=== PATIENT | female | born 1950 | race Caucasian/White ===

== ENCOUNTER 2025-07-12 18:15 | Emergency (ER) | payer MEDICARE, MEDICAID, SELFPAY ==
[2025-07-12 18:31] VITALS: BP 111/75; PULSE 106; RESP 14; TEMP 36.9; O2SAT 94
--- NOTE | 2025-07-12 18:43 | XR_ITS ---
Examination: CT abdomen and pelvis without contrast. Coronal 3-D reconstructions. Sagittal 2-D reconstructions. Date and time of exam: July 12, 2025, 1903 hours, comparison September 03, 2019 INDICATIONS: Bilateral flank pain radiating to the abdomen today CTDI: vol (mGy): 8.53 DLP: (mGycm): 464 Technique: Axial images of the abdomen have been obtained, 3 mm slice thickness Intravenous contrast material has not been administered. Low dose protocols were performed. One or more of the following dose reduction techniques were used; automated exposure control, adjustment of the mA and/or KV according to patient size, use of iterative reconstruction technique. Findings: Minimal right pleural disease, atelectasis versus mild pneumonia right base Trace pericardial effusion No focal liver lesions No definite gallstones Spleen is not enlarged No pancreatic mass Normal adrenal glands Air in the right renal collecting system Right perinephric stranding 24 mm hyperdense anterior right renal mass image 92 Mild right hydronephrosis, suspicious for 2 mm distal right ureterovesical junction calculus image 188 Significant scarring left kidney Air in the urinary bladder, no bladder calculi No bowel obstruction 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, T8 IMPRESSION: Recommend renal sonography to assess 24 mm hyperdense anterior right renal mass Right perinephric stranding, mild right hydronephrosis, suspicious for 2 mm distal right ureteral vesicle junction calculus Air in the right renal collecting system and in the urinary bladder, consider urinary tract infection
--- NOTE | 2025-07-12 18:43 | PD.EDRME ---
Rapid Medical Screening Exam RME Arrival date/time: 07/12/25 18:15 This is a case of 74-year-old female with history of diabetes came in in the emergency room due to bilateral flank pain radiating to the abdominal pain associated with general weakness and shortness of breath patient blood sugar was 589 at home worsening of the symptoms this daughter decided to bring patient here in the emergency room Chief Complaint: Recheck/Abnormal Lab/Rx Time Seen by Provider: 07/12/25 18:34 Vital signs: Vital Signs Temperature 98.5 F 07/12/25 18:31 Pulse Rate 106 H 07/12/25 18:31 Respiratory Rate 14 07/12/25 18:31 Blood Pressure 111/75 07/12/25 18:31 Pulse Oximetry (%) 94 L 07/12/25 18:31 Oxygen Delivery Method Room Air 07/12/25 18:31 Exam: Patient noted to have bilateral flank tenderness patient is mild distress seems dehydrated Clinical Impression: Hyperglycemia
[2025-07-12 18:59] LABS: Base Excess, Venous -10 (-3-3); O2 Saturation, Venous 92 % (96-97); PCO2, Venous 22 mmHg (36-56); PO2, Venous 58 mmHg (15-58); pH, Venous 7.39 (7.33-7.66)
[2025-07-12 19:01] LABS: Basophils # (Auto) 0.1 Thou/mm3 (0.0-0.2); Basophils % (Auto) 0 % (0-2.5); Eosinophils # (Auto) 0.0 Thou/mm3 (0.0-0.5); Eosinophils % (Auto) 0 % (0-10); Hematocrit 32.8 % (36.0-46.0); Hemoglobin 11.6 g/dL (12.0-16.0); Immature Granulocytes Auto 0.23 Thou/mm3 (0.00-0.00); Lymphocytes # (Auto) 0.4 Thou/mm3 (1.0-4.8); Lymphocytes % (Auto) 2 % (10-50); Mean Corpuscular HGB Conc 35.4 g/dl (31.0-37.0); Mean Corpuscular Hemoglobin 27.8 pg (25.0-35.0); Mean Corpuscular Volume 79 fL (80-100); Monocytes # (Auto) 0.8 Thou/mm3 (0.0-0.8); Monocytes % (Auto) 3 % (0-12); Neutrophils # (Auto) 23.8 Thou/mm3 (1.8-7.7); Neutrophils % (Auto) 94 % (37-80); Nucleated Red Blood Cell # 0.00 Thou/mm3 (0.00-0.00); Nucleated Red Blood Cell % 0 /100 WBC (0); Platelet Count 142 Thou/mm3 (140-440); RDW Standard Deviation 37.2 fL (36.4-46.3); Red Blood Count 4.17 Miln/mm3 (4.00-5.20); White Blood Count 25.3 Thou/mm3 (3.6-11.0)
[2025-07-12] MEDS: SODIUM CHLORIDE 0.9% 1000 ML 1,000 ML 999 ML IV ×2 (19:08→20:06)
[2025-07-12 19:09] LABS: Beta Hydroxybutyrate 4.5 mmol/L (<0.6)
--- NOTE | 2025-07-12 19:13 | EKG_ITS ---
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
--- NOTE | 2025-07-12 19:14 | XR_ITS ---
EXAMINATION: AP chest single view TECHNIQUE: AP portable upright chest single view Date and time: July 12, 2025, 2008 hours INDICATIONS: Sepsis alert shortness of breath today FINDINGS: Mild prominence left ventricle Prominent vascular congestion No lobar pneumonia The osseous structures are demineralized IMPRESSION: Suspicious for early heart failure
[2025-07-12 19:22] LABS: Lactate (Lactic Acid) 2.4 mMol/L (0.4-2.0)
[2025-07-12 19:35] LABS: INR 1.0 (0.9-1.3); Partial Thromboplastin Time 29.9 Seconds (22.0-36.0); Prothrombin Time 10.9 Seconds (9.0-12.2)
[2025-07-12 19:40] LABS: B-Type Natriuretic Peptide 73 pg/mL (0-100)
[2025-07-12] MEDS: INSULIN HUM REGULAR 1 UNIT/0.01 ML (PER UNIT) 10 UNIT IV (19:49)
[2025-07-12] MEDS: cefTRIAXone/D5w 1gm IV premix 1 GM/50 ML BAG IV (20:01)
[2025-07-12 20:03] LABS: Base Excess -10 (-3-3); HCO3 14 mEq/L (20-26); Inspired Oxygen, FIO2 21 %; O2 Saturation 96 % (91-98); PCO2 27 mmHg (32.0-48.0); PO2 78 mmHg (83-108); pH, Arterial 7.34 (7.35-7.45)
[2025-07-12 20:04] LABS: Basophils # (Auto) 0.0 Thou/mm3 (0.0-0.2); Basophils % (Auto) 0 % (0-2.5); Eosinophils # (Auto) 0.0 Thou/mm3 (0.0-0.5); Eosinophils % (Auto) 0 % (0-10); Hematocrit 31.8 % (36.0-46.0); Hemoglobin 11.4 g/dL (12.0-16.0); Immature Granulocytes Auto 0.21 Thou/mm3 (0.00-0.00); Lymphocytes # (Auto) 0.5 Thou/mm3 (1.0-4.8); Lymphocytes % (Auto) 2 % (10-50); Mean Corpuscular HGB Conc 35.8 g/dl (31.0-37.0); Mean Corpuscular Hemoglobin 29.0 pg (25.0-35.0); Mean Corpuscular Volume 81 fL (80-100); Monocytes # (Auto) 1.1 Thou/mm3 (0.0-0.8); Monocytes % (Auto) 4 % (0-12); Neutrophils # (Auto) 27.5 Thou/mm3 (1.8-7.7); Neutrophils % (Auto) 94 % (37-80); Nucleated Red Blood Cell # 0.00 Thou/mm3 (0.00-0.00); Nucleated Red Blood Cell % 0 /100 WBC (0); Platelet Count 143 Thou/mm3 (140-440); RDW Standard Deviation 38.2 fL (36.4-46.3); Red Blood Count 3.93 Miln/mm3 (4.00-5.20); White Blood Count 29.3 Thou/mm3 (3.6-11.0)
[2025-07-12 20:04] LABS: Allen Test Performed/OK; Puncture Site Right Radial
[2025-07-12 20:17] VITALS: BP 139/86; PULSE 96; RESP 29; TEMP 36.7; O2SAT 99; BMI 25.0
--- NOTE | 2025-07-12 20:32 | PD.EDAMS ---
Altered Mental Status RME/HPI General Chief Complaint: Recheck/Abnormal Lab/Rx Stated Complaint: HIGH BS, RIGHT LOWER BACK PAIN, DYSPNEA, CONFUSION Time Seen by Provider: 07/12/25 18:34 Arrival date/time: 07/12/25 18:15 RME / HPI RME / HPI narrative: 07/12/25 18:15 This is a case of 74-year-old female with history of diabetes came in in the emergency room due to bilateral flank pain radiating to the abdominal pain associated with general weakness and shortness of breath patient blood sugar was 589 at home worsening of the symptoms this daughter decided to bring patient here in the emergency room DR. CASTRO MAIN ED EVALUATION: Patient presents by daughter due to generalized fatigue, mild confusion decreasing intensity over the last several weeks. Reportedly patient is forgetful regarding PO medication for diabetes and doctors appointments. Patient is usually polydipsic, but not polyuric. No fever, chills, vomiting, diarrhea, or abdominal pain. PMH: Type II DM, Hypercholesterolemia PSH: Non-contributory Allergies: None Social: Non-smoker, Non-drinker, No illicit drug abuse Exam: Patient noted to have bilateral flank tenderness patient is mild distress seems dehydrated Impression: Hyperglycemia Related Data Home Medications ?Medication ?Instructions ?Recorded ?Confirmed Acetaminophen With Codeine #3 * 1 tab PO [id number] PRN PAIN #0 tabs 06/06/17 08/08/19 (TYLENOL WITH CODEINE #3 *) Dicyclomine Hcl * (BENTYL *) 20 mg PO QID #0 tabs 06/06/17 08/08/19 Fluticasone Propionate NASAL * 1 spry Nasally BID #0 spry 06/06/17 08/08/19 (FLONASE *) Losartan Potassium * (COZAAR *) 25 mg PO QDAY #0 tabs 06/06/17 08/08/19 Tiotropium Bally * (SPIRIVA *) 1 cap inhalation QDAY #0 puffs 06/06/17 08/08/19 albuterol sulfate 90 mcg/actuation 2 puff inhalation Q6HR PRN 09/19/17 11/21/19 aerosol inhaler (Proventil HFA) SHORTNESS OF BREATH #0 inhalations conjugated estrogens 0.3 mg tablet 0.3 mg PO QDAY #0 tabs 06/06/17 08/08/19 (Premarin) doxazosin 1 mg tablet (Cardura) 1 mg PO QDAY ##0 06/06/17 08/08/19 fluoxetine 20 mg capsule (Prozac) 20 mg PO QAM #0 caps 06/06/17 08/08/19 gabapentin 300 mg capsule 300 mg PO BID #0 caps 06/06/17 08/08/19 glipizide 10 mg tablet 10 mg PO ACBR #0 tabs 06/06/17 08/08/19 loratadine 10 mg tablet (Claritin) 10 mg PO QDAY #0 tabs 06/06/17 08/08/19 montelukast 10 mg tablet 10 mg PO HS #0 tabs 06/06/17 08/08/19 (Singulair) omeprazole 20 mg capsule,delayed 20 mg PO QDAY ##0 06/06/17 08/08/19 release pantoprazole 40 mg tablet,delayed 40 mg PO QDAY ##0 06/06/17 08/08/19 release (Protonix) pioglitazone 45 mg tablet (Actos) 45 mg PO QDAY #0 tabs 06/06/17 08/08/19 ranitidine HCl 150 mg tablet 150 mg PO BID #0 tabs 06/06/17 08/08/19 (Zantac) simvastatin 20 mg tablet (Zocor) 20 mg PO HS #0 tabs 06/06/17 08/08/19 sitagliptin phosphate 50 mg tablet 50 mg PO QDAY #0 tabs 06/06/17 08/08/19 (Januvia) carvedilol 3.125 mg tablet 3.125 mg PO BID 08/08/19 08/08/19 Previous Rx's ?Medication ?Instructions ?Recorded Hydrocodone/Ibuprofen (Vicoprofen 1 tab PO [id number] ##14 06/03/12 200-7.5 Tablet) cephalexin 500 mg capsule 500 mg PO BID #20 caps 09/01/19 Allergies Allergy/AdvReac Type Severity Reaction Status Date / Time No Known Allergies Allergy Verified 09/01/19 06:12 Review of Systems Review of Systems Systems Reviewed: All systems reviewed, normal except as documented Past Medical History Past Medical History CARDIAC: Positive Hypercholesterolemia ENDOCRINE: Positive Diabetes Mellitus Type 2 ED Exam Narrative Physical exam: GEN. APPEARANCE: The patient is alert awake, mildly confused although able to follow simple commands, 14/15, notably tachycardic., lying down comfortably, does not look ill/toxic. Patient has good eye contact. Patient is cooperative. VITALS: All vitals were reviewed and the pulse ox is 96%, which is normal according to my interpretation HEENT: Normocephalic, atraumatic and nontender. Pupils are equal and reactive. Mucous membranes dry. NECK: Supple, nontender, no meningismus, no JVD. There is no thyromegaly and no lymphadenopathy. CHEST: Nontender on palpation no deformity and no crepitus. CARDIOVASCULAR: Tachycardic, no murmur or gallop rub or extra beats. LUNGS: Clear to auscultation bilaterally with symmetrical chest rise. No laboring tachypnea or wheezing. No intercostal subcostal retraction. No rales and no rhonchi. ABDOMEN: Soft, flat, nontender to palpation, no guarding or rebound tenderness. There are no abnormal masses palpated. No pulsatile masses or bruits. Active and normal bowel sounds. EXTREMITIES: Normal inspection and palpation. No edema. No cyanosis. Patient is able to move all 4 extremities well SKIN: Warm and dry, no rashes noted. MUSCULOSKELETAL: No lumbar or midline bony tenderness. There is no CVA tenderness. No paraspinal muscle spasm or tenderness. NEURO: Cranial nerves II through XII grossly intact. There are no focal neurologic deficits noted. GCS is 15 PSYCHIATRIC: Patient is in normal mood and affect, cooperative. LYMPHATICS: No major lymphadenopathy noted. Course Course Course Narrative: Sepsis alert initiated. Orders made at this time are congruent with ED Adult Sepsis Order List. Re-evaluation is to be completed. Quality Measures Current suspected stage: sepsis Possible source: unknown Blood cultures ordered: yes Antibiotic ordered: Yes Pertinent labs: 07/12/25 07/12/25 18:54 22:54 Lactic Acid 2.4 H mMol/L 2.3 H mMol/L (0.4-2.0) (0.4-2.0) Procalcitonin 66.12 H ng/ml (0.0-0.49) sepsis Orders Category Date Time Status Bedside Blood Glucose STAT Care 07/12/25 21:58 Active Tractor Engine Mechanic STAT Care 07/12/25 19:13 Active Tractor Engine Mechanic STAT Care 07/12/25 21:58 Active Continuous Pulse Oximetry STAT Care 07/12/25 19:13 Completed DKA Protocol QSHIFT Care 07/12/25 21:58 Active EKG (ED ONLY) *Do not use* NOW Care 07/12/25 19:13 Completed Woo to [place]ill Routine Care 07/12/25 23:31 Ordered In and Out Catheter X1 Care 07/12/25 21:58 Completed In and Out Catheter X1PRN Care 07/12/25 19:13 Completed Insert IV NOW Care 07/12/25 19:13 Active Insert IV STAT Care 07/12/25 21:58 Active Intake and Output Routine Care 07/12/25 21:58 Ordered NPO STAT Care 07/12/25 19:13 Active Notify provider NEEDED Care 07/12/25 21:58 Active Strict Intake and Output Routine Care 07/12/25 19:13 Ordered Referral Registered Dietitian Routine Cons 07/12/25 21:[address] abdomen pelvis wo con Stat Exams 07/12/25 18:43 Completed EKG (ED Only) Stat Exams 07/12/25 19:13 Draft XR chest 1V portable Stat Exams 07/12/25 19:14 Completed Arterial Blood Gas Stat Lab 07/12/25 19:54 Completed B-Type Natriuretic Peptide Stat Lab 07/12/25 18:54 Completed Beta Hydroxybutyrate Stat Lab 07/12/25 18:54 Completed Beta Hydroxybutyrate Stat Lab 07/12/25 23:16 Completed Blood Culture (Lab) Stat Lab 07/12/25 19:30 Received Blood Culture (Lab) Stat Lab 07/12/25 22:54 Received CBC Stat Lab 07/12/25 18:54 Completed CBC Stat Lab 07/12/25 19:30 Completed Comprehensive Metabolic Panel Stat Lab 07/12/25 18:54 Completed Comprehensive Metabolic Panel Stat Lab 07/12/25 23:16 Completed Glycohemoglobin w (eAG) Stat Lab 07/12/25 19:30 Completed Lactic Acid [Lactate (Lactic Acid)] Stat Lab 07/12/25 18:54 Completed Lactic Acid, 3 HR Stat Lab 07/12/25 22:54 Completed Lipase Stat Lab 07/12/25 18:54 Completed Magnesium Stat Lab 07/12/25 18:54 Completed Magnesium Stat Lab 07/12/25 23:16 Completed Partial Thromboplastin Time Stat Lab 07/12/25 18:54 Completed Phosphorous Stat Lab 07/12/25 18:54 Completed Phosphorous Stat Lab 07/12/25 23:16 Completed Procalcitonin Stat Lab 07/12/25 18:54 Completed Prothrombin Time with INR Stat Lab 07/12/25 18:54 Completed Troponin I Stat Lab 07/12/25 18:54 Completed Urinalysis, C/S if Indicated Stat Lab 07/12/25 23:15 Completed Urine Culture Stat Lab 07/12/25 23:15 Received Venous Blood Gas Stat Lab 07/12/25 18:54 Completed Clindamycin 900Mg Ivpb [Cleocin/D5w Ivpb] 900 mg Med 07/12/25 22:16 Discontinued Pre-Mixed [Pre-mixed Bag] 1 bag IV X1 Dextrose 5%-Lactated Ringers [D5-Lr] 1,000 ml Med 07/12/25 21:58 Active Pot Chl Additive [KCl Additive] 40 meq IV 250 mls/hr Dextrose 5%-Lactated Ringers [D5-Lr] 1,000 ml Med 07/12/25 21:58 Active IV 250 mls/hr Dextrose 50% Syr [D50w Syringe Abboject] Med 07/12/25 21:58 Active 25 ml IV [id number] PRN Insulin Regular Med 07/12/25 18:39 Discontinued 10 unit IV X1 ONE KCL 20 mEq/L in D5-LR Med 07/12/25 21:58 Active 20 meq in 1,000 ml IV 250 mls/hr Magnesium Sulfate 2 GM Ivpb [Magnesium Sulfate Ivpb] Med 07/12/25 21:58 Active 2 gm in 50 ml IV 25 mls/hr Ondansetron Inj [Zofran Inj] Med 07/12/25 19:12 Active 4 mg IVP Q6HR PRN POT PHOS 15 mMol in NS 250 ML [Pot Phos 15 mMol in NS Med 07/12/25 21:58 Active 250 ml] 15 mmol in 250 ml IV PRN POTASSIUM CHL 10 mEq IVPB [Kcl Ivpb] Med 07/12/25 21:58 Active 10 meq in 100 ml IV 100 mls/hr POTASSIUM CHL 10 mEq IVPB [Kcl Ivpb] Med 07/12/25 21:58 Active 10 meq in 100 ml IV PRN Pre-Mixed [Pre-mixed Bag] 1 bag Med 07/12/25 21:58 Active Insulin Reg 100 Units/100 ml [Myxredlin] 100 unit IV 0.1 unit/kg/hr Ringers Lactated 1000 ml [Lactated Ringers] 1,000 ml Med 07/12/25 21:58 Active Pot Chl Additive [KCl Additive] 20 meq IV 250 mls/hr Ringers Lactated 1000 ml [Lactated Ringers] 1,000 ml Med 07/12/25 21:58 Active Pot Chl Additive [KCl Additive] 40 meq IV 250 mls/hr Ringers Lactated 1000 ml [Lactated Ringers] 1,000 ml Med 07/12/25 21:58 Active IV 250 mls/hr Sodium Bicarb 8.4% SYR Med 07/12/25 21:58 Active 50 ml IV Q4HR PRN Sodium Chloride 0.9% 1000 ml [Ns] 1,000 ml Med 07/12/25 18:40 Discontinued IV 999 mls/hr Sodium Chloride 0.9% 1000 ml [Ns] 1,000 ml Med 07/12/25 19:12 Discontinued IV 999 mls/hr Sodium Chloride 0.9% 250 ml [Ns] 250 ml Med 07/12/25 21:58 Active Sod Phos Additive [NaPhos Additive] 15 mmol IV 62.5 mls/hr cefTRIAXone/D5w 1gm IV premix [Rocephin/D5w 1gm IV Med 07/12/25 19:12 Discontinued premix] 1 gm in 50 ml IV X1 Oxygen Delivery NOW RT 07/12/25 19:13 Active Vital Signs Vital signs: Vital Signs Temperature 98.5 F 07/12/25 18:31 Pulse Rate 106 H 07/12/25 18:31 Respiratory Rate 14 07/12/25 18:31 Blood Pressure 111/75 07/12/25 18:31 Pulse Oximetry (%) 94 L 07/12/25 18:31 Oxygen Delivery Method Room Air 07/12/25 18:31 Altered Mental Status MDM Narrative MDM Narrative:: Scribe Attestation: IAnabelle, am scribing for and in the presence of Dr. Castro. Provider Notation: Although this document has been carefully reviewed, there may still be some phonetic and other typographical errors. These errors are purely grammatical due to imperfections in the software program and should not be construed in any way to compromise the substance of the patient's medical care during this visit. Patient presents by daughter due to generalized fatigue, mild confusion decreasing intensity over the last several weeks. Reportedly patient is forgetful regarding PO medication for diabetes and doctors appointments. Please see PE findings. Laboratory markers demonstrate marked WBC of 25K, mildly anemic with hemoglobin of 11.4, no thrombocytopenia, noted left shift without associated bandemia. Serum chemistries demonstrate markedly low Sodium of 110, Chloride of 79, CO2 of 13.7, mildly elevated BUN of 52, and Creatinine 3.8. Blood sugar markedly elevated at 562, and Lactic Acid of 2.4. Beta-Hydroxybutyrate/Acetoacetate elevated at 4.5 and Procalcitonin of 66.12. Patient met both sepsis and DKA criteria. Patient cultured and administered dual-antibiotics, with no obvious source of infection, although UA still currently pending. CXR demonstrates mild fluid overload. Patient also began on insulin infusion after initial bolis. Hypertonic saline will be considered. Hospitalist/Upholstery Technician contacted and agreed to personally evaluate patient at bedside for consideration of ICU admission. Final diagnoses include Acute DKA, Acute Sepsis, Acute Renal Insufficiency, and Acute Hyponatremia. Patient data External records reviewed:: [facility] previous records (No recent ED records available for review) Clinical information provided by:: patient and family (Daughter) Social determinants that could affect healthcare access:: none Patient has the following chronic illnesses:: Type II DM How is presenting disease/condition affected by chronic disease/condition?: exacerbated by Evaluation data The following diagnostics were reviewed and interpreted by me:: lab results, radiology exam(s) and EKG tracing(s) (EKG demonstrates Sinus tachycardia with rate of 100 bpm, no acute ST segment changes, no ventricular ectopy, axis leftward, previous interseptal wall GA, and LAFP, per my interpretation. ) Lab and/or radiology exams considered but not ordered:: None Interpretation Summary: RADIOLOGY Chest X-Ray: FINDINGS: Mild prominence left ventricle Prominent vascular congestion No lobar pneumonia The osseous structures are demineralized IMPRESSION: Suspicious for early heart failure Abdomen/Pelvis CT: Findings: Minimal right pleural disease, atelectasis versus mild pneumonia right base Trace pericardial effusion No focal liver lesions No definite gallstones Spleen is not enlarged No pancreatic mass Normal adrenal glands Air in the right renal collecting system Right perinephric stranding 24 mm hyperdense anterior right renal mass image 92 Mild right hydronephrosis, suspicious for 2 mm distal right ureterovesical junction calculus image 188 Significant scarring left kidney Air in the urinary bladder, no bladder calculi No bowel obstruction 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, T8 IMPRESSION: Recommend renal sonography to assess 24 mm hyperdense anterior right renal mass Right perinephric stranding, mild right hydronephrosis, suspicious for 2 mm distal right ureteral vesicle junction calculus Air in the right renal collecting system and in the urinary bladder, consider urinary tract infection Medications / Prescriptions Medications or Prescriptions considered but not ordered:: None Medication administrations:: Medication Administration History Dextrose (Dextrose 50%-Water Inj 50 Ml Syringe) 25 ml IV [id number] PRN PRN Reason: Blood Sugar - Low Potassium Chloride (Kcl Ivpb) 10 meq in 100 mls @ 100 mls/hr IV .Q1H PRN PRN Reason: IF POTASSIUM LESS THAN 3.3 Stop: 08/11/25 21:57 Magnesium Sulfate (Magnesium Sulfate Ivpb) 2 gm in 50 mls @ 25 mls/hr IV .Q2H PRN PRN Reason: PER DKA PROTOCOL Stop: 08/11/25 21:57 Insulin Human Regular 100 unit (/ IV Miscellaneous Supplies) 100 mls @ 6.804 mls/hr IV .[id number] PRN; Protocol PRN Reason: PER PROTOCOL Stop: 08/11/25 21:57 Last Admin: 07/12/25 22:32 Dose: 0.1 unit/kg/hr, 6.804 mls/hr Documented By: TIERA Co-signed By: MORIS Dextrose/Lactated Ringer's (D5-Lr) 1,000 mls @ 250 mls/hr IV .Q4H PRN PRN Reason: PER PROTOCOL Stop: 08/11/25 21:57 Lactated Ringer's (Lactated Ringers) 1,000 mls @ 250 mls/hr IV .Q4H PRN PRN Reason: PER PROTOCOL Stop: 07/13/25 21:57 Last Admin: 07/12/25 22:32 Dose: 250 mls/hr Documented By: TIERA Potassium Chloride 20 meq/ (Lactated Ringer's) 1,010 mls @ 250 mls/hr IV .Q4H3M PRN PRN Reason: K LEVEL 3.3 TO 5.3mM/L Stop: 08/11/25 21:57 Potassium Chloride 40 meq/ (Lactated Ringer's) 1,020 mls @ 250 mls/hr IV .Q4H5M PRN PRN Reason: K LEVEL < 3.3 mM/L Stop: 08/11/25 21:57 Potassium Chloride 40 meq/ (Dextrose/Lactated Ringer's) 1,020 mls @ 250 mls/hr IV .Q4H5M PRN PRN Reason: K LEVEL < 3.3mM/L Stop: 08/11/25 21:57 Potassium Cl/Dextrose/Lact Ringer's (Kcl 20 Meq/L In D5-Lr) 20 meq in 1,000 mls @ 250 mls/hr IV .Q4H PRN PRN Reason: K LEVEL 3.3 TO 5.3 mM/L Potassium Chloride (Kcl Ivpb) 10 meq in 100 mls @ 50 mls/hr IV PRN PRN PRN Reason: K LEVEL 3.3 to 5.3 & BG > 200 Stop: 08/11/25 21:57 Potassium Phosphate (Pot Phos 15 Mmol In Ns 250 Ml) 15 mmol in 250 mls @ 62.5 mls/hr IV PRN PRN PRN Reason: Phosphate <= 1mg/dL Stop: 08/11/25 21:57 Sodium Phosphate 15 mmol/ (Sodium Chloride) 255 mls @ 62.5 mls/hr IV .Q4H5M PRN PRN Reason: Phosphate <= 1mg/dL and K> than 5.3 Stop: 08/11/25 21:57 Ondansetron HCl (Ondansetron Inj 2 Mg/Ml Inj 2 Ml) 4 mg IVP Q6HR PRN PRN Reason: NAUSEA OR VOMITING Stop: 08/11/25 19:11 Sodium Bicarbonate (Sodium Bicarb Inj 8.4% Syr 50 Ml Syringe) 50 ml IV Q4HR PRN PRN Reason: For ph <= to 7.0 Stop: 08/11/25 21:57 Discontinued Medications Sodium Chloride (Ns) 1,000 mls @ 999 mls/hr IV .Q1H1M ONE Stop: 07/12/25 19:40 Last Infusion: 07/12/25 20:09 Dose: Infused Documented By: Admin: 07/12/25 19:08 Dose: 999 mls/hr Documented By: EMIL Sodium Chloride (Ns) 1,000 mls @ 999 mls/hr IV .Q1H1M ONE Stop: 07/12/25 20:12 Last Infusion: 07/12/25 21:07 Dose: Infused Documented By: Admin: 07/12/25 20:06 Dose: 999 mls/hr Documented By: TIERA Ceftriaxone Sodium/Dextrose (Rocephin/D5w 1gm Iv Premix) 1 gm in 50 mls @ 100 mls/hr IV X1 ONE Stop: 07/12/25 19:41 Last Infusion: 07/12/25 20:31 Dose: Infused Documented By: Admin: 07/12/25 20:01 Dose: 100 mls/hr Documented By: TIERA Clindamycin Phosphate 900 mg/ (IV Miscellaneous Supplies) 50 mls @ 50 mls/hr IV X1 ONE Stop: 07/12/25 23:15 Last Admin: 07/13/25 00:28 Dose: 50 mls/hr Documented By: TIERA Insulin Human Regular (Insulin Hum Regular 1 Unit/0.01 Ml (Per Unit)) 10 unit IV X1 ONE Stop: 07/12/25 18:40 Last Admin: 07/12/25 19:49 Dose: 10 unit Documented By: TIERA Co-signed By: ZEINA See above if any Consultations Consultation(s) initiated? (list below): Yes Consultation #1 (Physician, Specialty, Details): Discussed with Upholstery Technician for admission. Reviewed the patient?s HPI, PMHx, lab and/or radiology results. Discussed treatment plan. Declines admission. Suggests urological consult. Time: 22:38 Consultation #2 (Physician, Specialty, Details): Discussed with [facility] for transfer. Reviewed the patient?s HPI, PMHx, lab and/or radiology results. Discussed treatment plan. Will consult a transfer. Time: 00:20 Diagnosis Differential diagnosis altered mental status: altered mental status, delirium, hypoglycemia, hyponatremia, sepsis and other (Hyperglycemia) Most likely diagnosis given after review of the tests above:: DKA (diabetic ketoacidosis), Sepsis, emphysematous pyelonephritis, Acute hyponatremia, Acute renal insufficiency, Renal calculi Admission Indicated Admission indicated?: not indicated Explain why admission is indicated or not indicated:: Pending transfer to facility with urological capabilities. Admission Request Was there a request for admission?: Yes Admission Attestation Admission request attestation: Discussed case with [] from Hospitalist service regarding admission. Discussed patients ED course, exam findings, labs, and radiology results. The Hospitalist [agrees,declines] to accept the patient for admission. Disposition Plan Disposition Plan: Transfer Critical Care Time Critical Care Time Critical Care Time: Yes Total Critical Care Time (min.): 45 Attestation: The high probability of sudden, clinically significant deterioration in the patient?s condition required the highest level of my preparedness to intervene urgently. The services I provided to this patient were to treat and/or prevent clinically significant deterioration. Services included the following: chart data review, reviewing nursing notes and/or old charts, documentation time, project management consultant collaboration regarding findings and treatment options, medication orders and management, direct patient care, vital sign assessments and ordering, interpreting and reviewing diagnostic studies and lab tests. Aggregate critical care time includes only time during which I was engaged in work directly related to the patient?s care, as described above, whether at bedside or elsewhere in the Emergency Department. It did not include time spent performing other reported procedures or the services of residents, students, nurses or physician assistants. Discharge Plan Plan Patient Disposition: [facility] Facility Pt Being Transferred to: [facility] Prescriptions/Referrals Prescriptions/Med Rec: No Action carvedilol 3.125 mg tablet 3.125 mg PO BID Hydrocodone/Ibuprofen (Vicoprofen 200-7.5 Tablet) 1 TAB tablet 1 tab PO [id number] Qty: 14 0RF Acetaminophen With Codeine #3 * (TYLENOL WITH CODEINE #3 *) 1 TAB tablet 1 tab PO [id number] PRN (Reason: PAIN) Qty: 0 Patient Comments: FOR PAIN doxazosin [Cardura] 1 MG tablet 1 mg PO QDAY Qty: 0 glipizide 10 MG tablet 10 mg PO ACBR Qty: 0 pioglitazone [Actos] 45 MG tablet 45 mg PO QDAY Qty: 0 Patient Comments: FOR DIABETES pantoprazole [Protonix] 40 MG tablet,delayed release (DR/EC) 40 mg PO QDAY Qty: 0 Patient Comments: TO SUPPRESS GASTRIC SECRETIONS simvastatin [Zocor] 20 MG tablet 20 mg PO HS Qty: 0 ranitidine HCl [Zantac] 150 MG tablet 150 mg PO BID Qty: 0 gabapentin 300 MG capsule 300 mg PO BID Qty: 0 omeprazole 20 MG capsule,delayed release(DR/EC) 20 mg PO QDAY Qty: 0 montelukast [Singulair] 10 MG tablet 10 mg PO HS Qty: 0 albuterol sulfate [Proventil HFA] 6.7 GM HFA aerosol inhaler 2 puff Inhalation Q6HR PRN (Reason: SHORTNESS OF BREATH) Qty: 0 fluoxetine [Prozac] 20 MG capsule 20 mg PO QAM Qty: 0 loratadine [Claritin] 10 MG tablet 10 mg PO QDAY Qty: 0 conjugated estrogens [Premarin] 0.3 MG tablet 0.3 mg PO QDAY Qty: 0 sitagliptin phosphate [Januvia] 50 MG tablet 50 mg PO QDAY Qty: 0 Dicyclomine Hcl * (BENTYL *) 20 MG tablet 20 mg PO QID Qty: 0 Fluticasone Propionate NASAL * (FLONASE *) 160 SPRAY/BTL SPRAY 1 spry NASAL BID Qty: 0 Losartan Potassium * (COZAAR *) 25 MG tablet 25 mg PO QDAY Qty: 0 Tiotropium Bally * (SPIRIVA *) 18 MCG CAP.W.DEV 1 cap Inhalation QDAY Qty: 0 cephalexin 500 mg capsule 500 mg PO BID Qty: 20 0RF Referrals: Yong Walsh PAMartinC [Primary Care Provider] - In 1 week Problem List Clinical Impression: DKA (diabetic ketoacidosis), Sepsis, Acute hyponatremia, Acute renal insufficiency, Emphysematous pyelonephritis, Renal calculi Patient/Caregiver Discharge Instructions Print Language: Malawian Stand Alone Forms: [employer] Info., Patient Portal Info Letter
[2025-07-12 20:36] LABS: Alanine Aminotransferase 13 U/L (10-49); Albumin, Serum 4.1 gm/dL (3.4-4.8); Albumin/Globulin Ratio 1.4 (1.2-2.2); Alkaline Phosphatase 115 U/L (46-116); Anion Gap 17 (7-16); Aspartate Amino Transferase 14 U/L (0-34); BUN/Creatinine Ratio 14 Ratio (12-20); Bilirubin,Total 0.5 mg/dL (0.3-1.2); Blood Urea Nitrogen 52 mg/dL (9-23); Calcium 9.3 mg/dL (8.3-10.6); Calcium (Corrected) 9.3 mg/dL (8.5-10.1); Creatinine (Component) 3.8 mg/dL (0.6-1.3); Estimated Creatinine Clearance 12.0 mL/min (>60); Globulin 2.9 gm/dL (2.3-3.5); Magnesium 1.9 mg/dL (1.6-2.6); Osmolality,Calculated 263 (275-295); Phosphorous 3.4 mg/dL (2.4-5.1); Potassium 4.8 mMol/L (3.4-5.1); Procalcitonin 66.12 ng/ml (0.0-0.49); Total Protein 7.0 gm/dL (5.7-8.2); Troponin I < 0.020 ng/mL (0.0-0.045); eGFR 12 See Note
[2025-07-12 20:38] VITALS: PULSE 87; RESP 100; RESP 18
[2025-07-12 20:40] LABS: Chloride 79 mMol/L (98-107); Glucose 562 mg/dL (74-106); Sodium 110 mMol/L (136-145)
[2025-07-12 20:41] LABS: Carbon Dioxide 13.7 mMol/L (20.0-31.0)
[2025-07-12 21:00] VITALS: BP 119/78; PULSE 103; RESP 18; TEMP 36.7; O2SAT 99
[2025-07-12 22:00] VITALS: PULSE 102; RESP 18; TEMP 36.5; O2SAT 96
[2025-07-12 22:23] LABS: Reflex Lactate? Y
[2025-07-12] MEDS: INSULIN REG 100 UNITS/100 ML 100 UNIT in PRE-MIXED 1 BAG 6.804 UNIT IV (22:32)
[2025-07-12] MEDS: RINGERS LACTATED 1000 ML 1,000 ML 250 ML IV (22:32)
[2025-07-12 22:46] LABS: Glucose Estimated Average 355 mg/dL (80-131); Hemoglobin A1C > 14.0 % Hgb (4.8-6.0)
[2025-07-12 22:59] LABS: Lactic Acid, 3 HR 2.3 mMol/L (0.4-2.0)
[2025-07-12 23:00] VITALS: BP 151/79; PULSE 94; RESP 16; TEMP 36.4; O2SAT 100
[2025-07-12 23:02] LABS: Lipase 31 U/L (12-53)
[2025-07-12 23:20] LABS: Collection Type, Urine Clean Catch
[2025-07-12 23:27] LABS: Bacteria,Urine Rare; Bilirubin,Urine Negative (Negative); Blood,Urine 3+ (Negative); Clarity,Urine Clear (Clear/Hazy); Color,Urine Lt-Yellow (Lt Yel-Yel); Culture Indicated,Urine Yes; Glucose, Urine 4+ (Negative); Ketones,Urine 1+ (Negative); Leukocyte Esterase,Urine Positive (Negative); Nitrite,Urine Positive (Negative); PH,Urine 6.0 (5.0-7.0); Protein,Urine 2+ (Neg - Trace); RBC,Urine 11 /hpf (0-3); Specific Gravity,Urine 1.014 (1.001-1.035); Squamous Epithelial Cell,Urine < 1 /hpf (0-5); Urobilinogen,Urine Negative mg/dL (0.0-1.0); WBC,Urine 34 /hpf (0-5)
[2025-07-12 23:44] LABS: Beta Hydroxybutyrate 2.7 mmol/L (<0.6)
[2025-07-12 23:51] LABS: Alanine Aminotransferase 12 U/L (10-49); Albumin, Serum 3.8 gm/dL (3.4-4.8); Albumin/Globulin Ratio 1.7 (1.2-2.2); Alkaline Phosphatase 112 U/L (46-116); Anion Gap 16 (7-16); Aspartate Amino Transferase 29 U/L (0-34); BUN/Creatinine Ratio 17 Ratio (12-20); Bilirubin,Total 0.4 mg/dL (0.3-1.2); Blood Urea Nitrogen 61 mg/dL (9-23); Calcium 8.3 mg/dL (8.3-10.6); Calcium (Corrected) 8.5 mg/dL (8.5-10.1); Carbon Dioxide 15.1 mMol/L (20.0-31.0); Chloride 87 mMol/L (98-107); Creatinine (Component) 3.6 mg/dL (0.6-1.3); Estimated Creatinine Clearance 12.7 mL/min (>60); Globulin 2.2 gm/dL (2.3-3.5); Magnesium 1.8 mg/dL (1.6-2.6); Osmolality,Calculated 273 (275-295); Phosphorous 2.8 mg/dL (2.4-5.1); Potassium 4.8 mMol/L (3.4-5.1); Total Protein 6.0 gm/dL (5.7-8.2); eGFR 13 See Note
[2025-07-12 23:59] LABS: Glucose 419 mg/dL (74-106); Sodium 118 mMol/L (136-145)
--- NOTE | 2025-07-13 00:21 | PC.NURSE ---
0011 [facility] CONTACTED AT THIS TIME. 00[address] DR SANCHEZ SPEAKING WITH [facility] AT THIS TIME.
[2025-07-13] MEDS: CLINDAMYCIN 900MG IVPB 900 MG in PRE-MIXED 1 BAG 50 MG IV (00:28)
[2025-07-13 01:00] VITALS: BP 131/93; PULSE 105; RESP 16; TEMP 37.1; O2SAT 98
[2025-07-13 02:00] VITALS: BP 105/62; PULSE 97; RESP 18; TEMP 37; O2SAT 94
--- NOTE | 2025-07-13 02:10 | PC.NURSE ---
Report called and given to NATALIE Doan at [facility].
--- NOTE | 2025-07-13 02:34 | PC.NURSE ---
SPOKE WITH RAUL AT [facility] AND ADVISED HER THAT OUR ER DR STATED IT WAS OKAY TO STOP THE INSULIN GTT FOR TRANSPORT TO THEIR HOSPITAL
== END 2025-07-13 02:20 | disposition short-term general hospital (02) ==
PROVIDERS: Nurse Practitioner Family; Emergency Provider Emergency Medicine; PCP Physician Assistant
DX: E10.10 Type 1 diabetes mellitus with ketoacidosis without coma (principal); E78.00 Pure hypercholesterolemia, unspecified; E87.1 Hypo-osmolality and hyponatremia
CPT/HCPCS: 36415; 36600; 51701; 51702; 71045; 74176; 80053; 81001; 82010; 82803; 83036; 83605; 83690; 83735; 83880; 84100; 84145; 84484; 85025; 85610; 85730; 87040; 87077; 87086; 87186; 93005; 96361; 96365; 96366; 99285; A4314; J0696; J0736; J1815; J7030; J7120